=== PATIENT | male | born 1975 | race Caucasian/White ===

== ENCOUNTER → 2024-11-19 11:41 | Outpatient (REF) | payer BC, SELFPAY | LOC: RAD 11:41 | PROVIDERS: ATTENDING PHYSICIAN Family Medicine | DX: Z87.891 Personal history of nicotine dependence (principal); Z12.2 Encounter for screening for malignant neoplasm of respiratory organs; Z82.49 Family history of ischemic heart disease and other diseases of the circulatory system; K40.90 Unilateral inguinal hernia, without obstruction or gangrene, not specified as recurrent | CPT/HCPCS: 71275; 74174; Q9967 ==

== ENCOUNTER → 2025-03-11 09:20 | Outpatient (REF) | payer BC, SELFPAY | LOC: HWRAD 09:20 | PROVIDERS: ATTENDING PHYSICIAN Family Medicine | DX: R59.0 Localized enlarged lymph nodes (principal) | CPT/HCPCS: 71250 ==